=== PATIENT | male | born 1990 | race Caucasian/White ===

== ENCOUNTER 2021-01-18 09:55 | Emergency (ER) | payer OTHER ==
[~2021-01-18] VITALS: Ht 177.8 cm; Wt 88.6 kg
[2021-01-18] MEDS ORDERED: LIDOCAINE 1%/EPI 1:200,000/PF 30 ML VIAL PERC ONE (11:00)
[2021-01-18] MEDS ORDERED: PERTUSS(ACELL),DIPH,TET VAC/PF 0.5 ML VIAL IM ONE (11:15)
[2021-01-18 12:20] VITALS: BP 130/78
== END 2021-01-18 12:29 | disposition home or self-care (01) ==
LOC: EMS 09:55
DX: S71.112A Laceration without foreign body, left thigh, initial encounter (principal); W19.XXXA Unspecified fall, initial encounter; Y93.89 Activity, other specified; Y92.89 Other specified places as the place of occurrence of the external cause; Y99.8 Other external cause status
CPT/HCPCS: 12002; 90471; 90715; 99283; J3490

== ENCOUNTER 2021-09-24 01:35 | Emergency (ER) | payer OTHER ==
[~2021-09-24] VITALS: Ht 167.6 cm; Wt 86.4 kg
[2021-09-24] MEDS ORDERED: PROPARACAINE HCL 0.5% 15 ML OPHTHALMIC SOLUTION OD ONE (02:45)
[2021-09-24] MEDS ORDERED: PROPARACAINE HCL 0.5% 15 ML OPHTHALMIC SOLUTION ONE (02:45)
[2021-09-24 05:13] VITALS: BP 118/78
== END 2021-09-24 05:15 | disposition home or self-care (01) ==
LOC: EMS 01:36
DX: T15.91XA Foreign body on external eye, part unspecified, right eye, initial encounter (principal); W34.09XA Accidental discharge from other specified firearms, initial encounter; Y93.89 Activity, other specified; Y92.89 Other specified places as the place of occurrence of the external cause; Y99.8 Other external cause status
CPT/HCPCS: 99283

== ENCOUNTER 2022-04-25 20:42 | Emergency (ER) | payer OTHER ==
[~2022-04-25] VITALS: Ht 167.6 cm; Wt 76.7 kg
[2022-04-25 23:54] LABS: COVID AG,FIA SOURCE NASAL SWAB
[2022-04-26 00:13] LABS: RAPID GROUP A STREP NEGATIVE (NEGATIVE)
[2022-04-26 00:19] LABS: INFLUENZA TYPE A NEGATIVE FOR TYPE A (NEGATIVE); INFLUENZA TYPE B NEGATIVE FOR TYPE B (NEGATIVE)
[2022-04-26] MEDS ORDERED: ACET-66 PO (00:37)
[2022-04-26] MEDS ORDERED: IBUP-2070 PO (00:37)
[2022-04-26] MEDS ORDERED: BENZ1LOZ50 PO (00:37)
[2022-04-26 00:59] VITALS: BP 129/74
== END 2022-04-26 01:09 | disposition home or self-care (01) ==
LOC: EMS 20:44
DX: J02.8 Acute pharyngitis due to other specified organisms (principal); Z20.822 Contact with and (suspected) exposure to COVID-19
CPT/HCPCS: 87430; 87804; 99283

== ENCOUNTER 2022-09-16 20:55 | Emergency (ER) | payer OTHER ==
[~2022-09-16] VITALS: Ht 167.6 cm; Wt 81.8 kg
[~2022-09-16 20:55] MED LIST: ACET-66 PO; BENZ1LOZ77 PO; IBUP-2070 PO
[2022-09-16 22:42] VITALS: BP 135/80
[2022-09-16] MEDS ORDERED: PERTUSS(ACELL),DIPH,TET VAC/PF 0.5 ML SYRINGE IM. ONE (23:00)
[2022-09-16] MEDS ORDERED: IBUPROFEN 600 MG TABLET PO ONE (23:00)
[2022-09-16] MEDS ORDERED: BUPIVACAINE HCL/PF 0.25% 10 ML VIAL SQ ONE (23:00)
== END 2022-09-17 00:04 | disposition home or self-care (01) ==
LOC: EMS 20:57
DX: S61.217A Laceration without foreign body of left little finger without damage to nail, initial encounter (principal); S00.03XA Contusion of scalp, initial encounter; Y04.2XXA Assault by strike against or bumped into by another person, initial encounter; Y93.89 Activity, other specified; Y92.89 Other specified places as the place of occurrence of the external cause; Y99.8 Other external cause status
CPT/HCPCS: 99283; 12001; J3490; 99282

== ENCOUNTER 2025-05-04 18:03 | Emergency (ER) | payer OTHER ==
[~2025-05-04] VITALS: Ht 175.3 cm; Wt 80.0 kg
[~2025-05-04 18:03] MED LIST changes: +BENZ1LOZ50 PO; -BENZ1LOZ77 PO; +IBUP-1492 PO; -IBUP-2070 PO
[2025-05-04 18:10] VITALS: BP 113/78; PULSE 82; RESP 16; TEMP 98.3; O2SAT 98
== END 2025-05-04 19:36 | disposition left against medical advice (07) ==
LOC: EMS 18:04
DX: F41.9 Anxiety disorder, unspecified (principal); Z79.899 Other long term (current) drug therapy
CPT/HCPCS: 99281; Z7502